=== PATIENT | female | born 1995 | race Hispanic/Latino ===

== ENCOUNTER 2020-06-13 18:40 | Emergency (ER) | payer OTHER, SELFPAY ==
[2020-06-13 20:52] LABS: Bilirubin Neg (Negative); Blood, Urine Negative (Negative); Clarity Clear (Clear); Glucose, Urine (Dipstick) Normal (Negative); Ketone, Urine Negative (Negative); Leukocyte Negative (Negative); Nitrite Negative (Negative); Protein, Urine (Dipstick) Negative (Neg-Trace); Specific Gravity, Urine 1.005 (1.002-1.036); Urobilinogen Normal mg/dL (Less than 2); pH, Urine 6.5 (5.0-9.0)
[2020-06-13 20:55] LABS: Pregnancy Test - Urine (BHCG) Negative (Negative); Pregu Control Background? CLEAR/WHITE (CLR/WHITE); Pregu Control Bar Appear? YES (CONTROL BAR); Specific Gravity 1.005 (1.002-1.036)
[2020-06-13] MEDS ORDERED: Ketorolac Tromethamine 30 MG/ML VIAL ONE (20:57)
== END 2020-06-13 21:46 | disposition home or self-care (01) ==
LOC: CSHERS 18:40
DX: S39.012A Strain of muscle, fascia and tendon of lower back, initial encounter (principal); R10.30 Lower abdominal pain, unspecified; R10.813 Right lower quadrant abdominal tenderness; R10.814 Left lower quadrant abdominal tenderness
CPT/HCPCS: 81003; 81025; 96372; 99284; J1885

== ENCOUNTER 2021-03-28 16:26 | Day surgery (SDC) | payer OTHER, BC ==
[2021-03-28] MEDS ORDERED: hydrALAZINE 20 MG/ML VIAL SLOW IVP PRN (17:37)
[2021-03-28] MEDS ORDERED: Acetaminophen 500 MG TAB PO SCH (18:00)
== END 2021-03-28 18:20 | disposition home or self-care (01) ==
LOC: CSHLD/OP 16:26
PROVIDERS: ATTEND Obstetrics & Gynecology
DX: O36.8130 Decreased fetal movements, third trimester, not applicable or unspecified (principal); O99.891 Other specified diseases and conditions complicating pregnancy; M54.9 Dorsalgia, unspecified; R10.2 Pelvic and perineal pain; Z3A.31 31 weeks gestation of pregnancy; V49.9XXA Car occupant (driver) (passenger) injured in unspecified traffic accident, initial encounter
CPT/HCPCS: 99282

== ENCOUNTER 2021-03-31 23:34 | Emergency (ER) | payer BC, OTHER ==
[2021-04-01] MEDS ORDERED: Ventolin HFA Inhaler 60 PUFF INHALER ONE (01:44)
[2021-04-01 02:58] LABS: SARS-CoV-2 NAA Rapid Test Not Detected (NotDetected)
== END 2021-04-01 03:18 | disposition home or self-care (01) ==
LOC: CSHERS 23:34
DX: J39.8 Other specified diseases of upper respiratory tract (principal); B97.89 Other viral agents as the cause of diseases classified elsewhere; Z20.822 Contact with and (suspected) exposure to COVID-19
CPT/HCPCS: 0240U; 71045; 87081; 87430

== ENCOUNTER 2021-04-24 16:27 | Day surgery (SDC) | payer BC, OTHER ==
[2021-04-24] MEDS ORDERED: hydrALAZINE 20 MG/ML VIAL SLOW IVP PRN (17:31)
[2021-04-24] MEDS ORDERED: Lactated Ringer's 1,000 ML IV SCH (17:45)
[2021-04-24 19:00] LABS: Bilirubin Neg (Negative); Blood, Urine 50 (Negative); Clarity Clear (Clear); Glucose, Urine (Dipstick) Normal (Negative); Ketone, Urine Negative (Negative); Leukocyte 100 (Negative); Nitrite Negative (Negative); Protein, Urine (Dipstick) 30 mg/dl (Neg-Trace); Specific Gravity, Urine 1.005 (1.002-1.036); Urobilinogen Normal mg/dL (Less than 2)
[2021-04-24 19:12] LABS: RBC/HPF 0-3 HPF (0-3)
[2021-04-24 19:13] LABS: Bacteria/HPF 2+ HPF (None Seen); Mucous/LPF Rare LPF (<2+)
== END 2021-04-24 19:25 | disposition home or self-care (01) ==
LOC: CSHLD/OP 16:27
PROVIDERS: ATTEND Obstetrics & Gynecology
DX: O47.03 False labor before 37 completed weeks of gestation, third trimester (principal); O26.853 Spotting complicating pregnancy, third trimester; O09.293 Supervision of pregnancy with other poor reproductive or obstetric history, third trimester; Z3A.35 35 weeks gestation of pregnancy
CPT/HCPCS: 81001; 87081; 87480; 87510; 87660

== ENCOUNTER 2021-05-13 09:19 | Inpatient (IN) | payer OTHER ==
[2021-05-13 10:09] VITALS: BMI 41.3
[2021-05-13] MEDS ORDERED: Ibuprofen 800 MG TAB PO PRN (10:26)
[2021-05-13] MEDS ORDERED: hydrALAZINE 20 MG/ML VIAL SLOW IVP PRN ×2 (10:26→17:15)
[2021-05-13] MEDS ORDERED: Lidocaine 1% (PF) 30 ML VIAL SC PRN (10:26)
[2021-05-13] MEDS ORDERED: HYDROcodone/Acetaminophen 5/325 mg Tablet PO PRN (10:26)
[2021-05-13] MEDS ORDERED: Docusate 100 MG CAP PO PRN (10:26)
[2021-05-13] MEDS ORDERED: Diphenoxylate HCl/Atropine Tablet PO PRN ×2 (10:26)
[2021-05-13] MEDS ORDERED: Methylergonovine 0.2 MG/ML VIAL IM PRN ×2 (10:26→17:15)
[2021-05-13] MEDS ORDERED: Ondansetron PF 4 MG/2 ML Vial IVP PRN ×2 (10:26→17:15)
[2021-05-13] MEDS ORDERED: Carboprost 250 MCG/ML AMP IM PRN (10:26)
[2021-05-13] MEDS ORDERED: Misoprostol 200 MCG TAB PR PRN (10:26)
[2021-05-13] MEDS ORDERED: Acetaminophen 500 MG TAB PO PRN (10:26)
[2021-05-13] MEDS ORDERED: Promethazine HCl 25 MG/ML VIAL IM PRN ×2 (10:26→17:15)
[2021-05-13] MEDS ORDERED: Lactated Ringer's 1,000 ML IV SCH (10:30)
[2021-05-13] MEDS ORDERED: NS w/ Oxytocin 30 units 500 ML IV SCH ×3 (10:30→17:15)
[2021-05-13 10:54] LABS: Mean Corpuscular HGB CONC 31.7 g/dL (32.0-36.0); Mean Corpuscular Hemoglobin 27.6 pg (27.0-33.0); Mean Platelet Volume 10.2 fl (7.4-10.4); Platelet Count 262 10x3/uL (150-450); RBC Distribution Width 13.7 % (11.5-14.5); Red Blood Cell (RBC) Count 3.99 10x6/uL (3.90-5.03); White Blood Cell (WBC) Count 7.7 10x3/uL (3.5-10.5)
[2021-05-13 11:28] LABS: Hep B Surf Ag Non-Reactive S/CO (NonReactive); Syphilis Antibody Nonreactive (Nonreactive); Syphilis Antibody Index 0.12 S/CO (<1.00 Non-Reactive)
[2021-05-13 11:53] LABS: HBSAg Index 0.18 S/CO (0-0.99)
[2021-05-13] MEDS: Butorphanol Tartrate 1 MG/ML VIAL SLOW IVP PRN ×2 (12:05→13:31)
[2021-05-13] MEDS ORDERED: Preparation H Ointment 28 GM TUBE PR PRN (17:15)
[2021-05-13] MEDS ORDERED: Bisacodyl 10 MG SUPP PR PRN (17:15)
[2021-05-13] MEDS ORDERED: diphenhydrAMINE 25 MG CAP PO PRN (17:15)
[2021-05-13] MEDS ORDERED: Varicella virus, LIVE 0.5 ML VIAL SC ONE (17:15)
[2021-05-13] MEDS ORDERED: Lanolin Ointment 7 GM TUBE TOP PRN (17:15)
[2021-05-13] MEDS ORDERED: Boostrix 0.5 ML (Tdap) VIAL IM ONE (17:15)
[2021-05-13] MEDS ORDERED: Benzocaine-Menthol 82.5 ML CAN TOP PRN (17:15)
[2021-05-13] MEDS ORDERED: Milk Of Magnesia 30 ML UDCUP PO PRN (17:15)
[2021-05-13] MEDS ORDERED: Measles/Mumps/Rubella 10 MCG/0.5 ML VIAL SC ONE (17:15)
[2021-05-13] MEDS ORDERED: Zolpidem Tartrate 5 MG TAB PO PRN (17:15)
[2021-05-13] MEDS ORDERED: Misoprostol 200 MCG TAB VAG PRN (17:15)
[2021-05-13 17:52] LABS: SARS-CoV-2 PCR by NAA Not Detected (NotDetected)
[2021-05-13] MEDS: HYDROcodone/Acetaminophen 5/325 mg Tablet PO PRN ×2 (20:27→23:58)
[2021-05-13] MEDS: Docusate 100 MG CAP PO SCH (21:47)
[2021-05-13] MEDS: Ibuprofen 800 MG TAB PO SCH (21:47)
[2021-05-14] MEDS: HYDROcodone/Acetaminophen 5/325 mg Tablet PO PRN (03:57)
[2021-05-14 04:21] LABS: Hemoglobin 10.1 g/dL (12.0-15.5); Mean Corpuscular HGB CONC 31.8 g/dL (32.0-36.0); Mean Corpuscular Hemoglobin 27.7 pg (27.0-33.0); Mean Corpuscular Volume 87.4 fl (81.6-98.3); Mean Platelet Volume 10.2 fl (7.4-10.4); Platelet Count 222 10x3/uL (150-450); RBC Distribution Width 13.8 % (11.5-14.5); Red Blood Cell (RBC) Count 3.64 10x6/uL (3.90-5.03); White Blood Cell (WBC) Count 8.9 10x3/uL (3.5-10.5)
[2021-05-14] MEDS: Ibuprofen 800 MG TAB PO SCH ×2 (05:40→13:50)
[2021-05-14] MEDS: Ferrous Sulfate 325 MG TAB PO SCH ×2 (08:05→16:48)
[2021-05-14] MEDS: Docusate 100 MG CAP PO SCH (08:47)
[2021-05-14] MEDS ORDERED: Prenatal Vitamin 1 TAB PO SCH (09:00)
[2021-05-14 11:46] VITALS: BP 110/53; TEMP 98.2
== END 2021-05-14 17:30 | disposition home or self-care (01) | DRG 807 ==
LOC: CSHLD 09:19 → CSHPP 17:00
PROVIDERS: ADMIT Obstetrics & Gynecology; ATTEND Obstetrics & Gynecology
PROC: 10E0XZZ Delivery of Products of Conception, External Approach (ICD-10-PCS; principal; 2021-05-13)
DX: O80 Encounter for full-term uncomplicated delivery (principal); Z37.0 Single live birth; Z3A.38 38 weeks gestation of pregnancy; Z20.822 Contact with and (suspected) exposure to COVID-19
CPT/HCPCS: 36415; 85027; 86780; 86850; 86900; 86901; 87340; J0595; J2590; U0003; U0005

== ENCOUNTER 2022-04-22 09:23 | Day surgery (SDC) | payer OTHER ==
[2022-04-20 13:52] VITALS: BMI 37.5
[2022-04-22] MEDS ORDERED: PROPOFOL 0 ML ONE (11:00)
[2022-04-22] MEDS ORDERED: Fentanyl 100 MCG/2 ML VIAL ONE (11:01)
[2022-04-22] MEDS ORDERED: Lidocaine 2% MPF 10 ML AMP (For Epidural Use) ONE (11:01)
[2022-04-22] MEDS ORDERED: PROPOFOL 20 ML ONE (11:01)
[2022-04-22 11:02] LABS: BHCG - Serum Negative (NEGATIVE); Pregs Control Background? CLEAR/WHITE (CLR/WHITE); Pregs Control Bar Appear? YES (CONTROL BAR)
[2022-04-22] MEDS ORDERED: Metoclopramide HCl 10 MG/2 ML VIAL ONE (12:14)
[2022-04-22] MEDS ORDERED: Ondansetron PF 4 MG/2 ML Vial ONE (12:14)
== END 2022-04-22 12:49 | disposition home or self-care (01) ==
LOC: CSHSDC 09:23
PROVIDERS: ATTEND Internal Medicine Gastroenterology
PROC: 0DB68ZX Excision of Stomach, Via Natural or Artificial Opening Endoscopic, Diagnostic (ICD-10-PCS; principal; 2022-04-22)
DX: K29.50 Unspecified chronic gastritis without bleeding (principal); K21.9 Gastro-esophageal reflux disease without esophagitis; Z90.49 Acquired absence of other specified parts of digestive tract; E66.9 Obesity, unspecified; Z68.37 Body mass index [BMI] 37.0-37.9, adult
CPT/HCPCS: 36415; 84703; 88305; 88342; J2405; J2704; J2765; J3010

== ENCOUNTER 2023-11-29 20:17 | Emergency (ER) | payer SELFPAY ==
[2023-11-29] MEDS ORDERED: Ibuprofen 200 MG TAB ONE (21:16)
[2023-11-29] MEDS ORDERED: Acetaminophen 500 MG TAB ONE (21:17)
== END 2023-11-29 21:07 | disposition home or self-care (01) ==
LOC: CSHERS 20:17
DX: T63.441A Toxic effect of venom of bees, accidental (unintentional), initial encounter (principal)
CPT/HCPCS: 99282